=== PATIENT | female | born 2000 ===

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

== ENCOUNTER 2019-05-08 17:56 | Inpatient (IN) ==
[2019-05-08] MEDS ORDERED: CLINDAMYCIN INJ 600 MG in PREMIX 1 EACH IV STA (19:27)
[2019-05-08 19:35] LABS: Basophils % 0.3 % (0.0-0.8); Eosinophils % 0.2 % (0.00-10.9); Hematocrit 42.8 VOL% (35.7-47.0); Hemoglobin 14.4 GM/DL (12.0-16.0); Immature Granulocytes % 0.5 %; Immature Granulocytes Absolute 0.08 #; Lymphocytes # 1.4 10*3/uL (1.4-4.0); Lymphocytes % 8.8 % (21.3-54.2); Mean Corpuscular HGB Conc 33.6 GM/DL (32-36); Mean Corpuscular Volume 92.6 FL (87-102); Mean Platelet Volume 10.2 FL (9.6-12.0); Monocytes % 7.4 % (1.7-12.7); Neutrophils % 82.8 % (38.7-73.9); Platelet Count 270 T/CUMM (130-400); Red Blood Count 4.62 MC/CUMM (3.8-5.5); Red Cell Distribution Width 12.9 % (9.3-17.3); White Blood Count 15.3 T/CUMM (4-12)
[2019-05-08 19:46] LABS: Albumin 3.5 G/DL (3.4-5.0); Bilirubin,Total 0.9 MG/DL (0.2-1.0); Calcium 8.6 MG/DL (8.5-10.1); Osmolality,Calculated 275.5 MOS/KG (273-304); Total Protein 7.8 G/DL (6.4-8.3)
[2019-05-08] MEDS ORDERED: ONDANSETRON 4 MG/2 ML VIAL IV PRN (22:45)
[2019-05-08] MEDS ORDERED: MORPHINE 4 MG/1 ML VIAL IV PRN (22:45)
[2019-05-08] MEDS: SODIUM CHLORIDE 0.9% 1,000 ML IV SCH (23:26)
[2019-05-09] MEDS ORDERED: GENTAMICIN INJ 450 MG in SODIUM CHLORIDE 0.9% 100 ML IV SCH
[2019-05-09] MEDS ORDERED: CLINDAMYCIN INJ 600 MG in PREMIX 1 EACH IV SCH (05:00)
[2019-05-09 06:53] LABS: Basophils % 0.1 % (0.0-0.8); Eosinophils # 0.1 10*3/uL (0.0-0.87); Eosinophils % 0.5 % (0.00-10.9); Hematocrit 41.8 VOL% (35.7-47.0); Hemoglobin 13.9 GM/DL (12.0-16.0); Immature Granulocytes % 1.3 %; Immature Granulocytes Absolute 0.17 #; Lymphocytes # 0.8 10*3/uL (1.4-4.0); Lymphocytes % 5.6 % (21.3-54.2); Mean Corpuscular HGB Conc 33.3 GM/DL (32-36); Mean Corpuscular Volume 93.5 FL (87-102); Monocytes % 8.4 % (1.7-12.7); Neutrophils % 84.1 % (38.7-73.9); Platelet Count 257 T/CUMM (130-400); Red Blood Count 4.47 MC/CUMM (3.8-5.5); White Blood Count 13.5 T/CUMM (4-12)
[2019-05-09] MEDS ORDERED: ceFAZolin 1,000 MG in SYRINGE 1 EACH IV ONE (06:53)
[2019-05-09 07:26] LABS: Calcium 8.7 MG/DL (8.5-10.1); Osmolality,Calculated 287.6 MOS/KG (273-304)
[2019-05-09] MEDS: PANTOPRAZOLE 40 MG TABLET PO SCH (08:08)
[2019-05-09] MEDS ORDERED: LIDOCAINE 1% 20 ML VIAL ONE (09:43)
[2019-05-09] MEDS ORDERED: fentaNYL 100 MCG/2 ML VIAL ONE (10:21)
[2019-05-09] MEDS ORDERED: PROPOFOL 200 MG/20 ML VIAL IV ONE (10:22)
[2019-05-09] MEDS ORDERED: LIDOCAINE 2% 5 ML VIAL ONE (10:22)
[2019-05-09] MEDS ORDERED: MIDAZOLAM 2 MG/2 ML VIAL ONE (10:22)
[2019-05-09] MEDS ORDERED: DEXAMETHASONE 4 MG/1 ML VIAL ONE (10:23)
[2019-05-09] MEDS ORDERED: ONDANSETRON 4 MG/2 ML VIAL ONE (10:23)
[2019-05-09] MEDS ORDERED: SEVOFLURANE 1 UNIT/15 MINUTE INH ONE (10:23)
[2019-05-09] MEDS: SODIUM CHLORIDE 0.9% 1,000 ML IV SCH (14:40)
[2019-05-09] MEDS: PIPERACILLIN/TAZOBACTAM 3,375 MG in SODIUM CHLORIDE 0.9% 100 ML IV SCH ×2 (14:42→21:07)
[2019-05-09] MEDS ORDERED: VANCOMYCIN INJ 1,250 MG in SODIUM CHLORIDE 0.9% 250 ML IV SCH (17:00)
[2019-05-09] MEDS ORDERED: diphenhydrAMINE 50 MG/1 ML VIAL IV ONE (20:17)
[2019-05-09] MEDS: CLINDAMYCIN INJ 600 MG in PREMIX 1 EACH IV SCH (20:31)
[2019-05-10] MEDS: CLINDAMYCIN INJ 600 MG in PREMIX 1 EACH IV SCH ×3 (03:57→21:07)
[2019-05-10] MEDS: PIPERACILLIN/TAZOBACTAM 3,375 MG in SODIUM CHLORIDE 0.9% 100 ML IV SCH ×2 (05:03→13:33)
[2019-05-10] MEDS: SODIUM CHLORIDE 0.9% 1,000 ML IV SCH ×6 (06:31→22:32)
[2019-05-10] MEDS: PANTOPRAZOLE 40 MG TABLET PO SCH (09:10)
[2019-05-11] MEDS: CLINDAMYCIN INJ 600 MG in PREMIX 1 EACH IV SCH ×2 (04:39→12:37)
[2019-05-11] MEDS: SODIUM CHLORIDE 0.9% 1,000 ML IV SCH (07:14)
[2019-05-11] MEDS: PANTOPRAZOLE 40 MG TABLET PO SCH (08:42)
[2019-05-11 16:10] VITALS: BP 98/51
== END 2019-05-11 18:40 | disposition home or self-care (01) | DRG 581 ==
LOC: EDBD → EDUNIT# → N.ED 17:56 → N.EDINP 20:16 → N.3E 21:37
PROVIDERS: ADMIT Hospitalist; ATTEND Hospitalist